=== PATIENT | male | born 1950 | race Caucasian/White ===

== ENCOUNTER 2024-06-26 17:22 | Emergency (ER) | payer MEDICAID, MEDICARE ==
[~2024-06-26] VITALS: Ht 175.3 cm; Wt 90.0 kg
[2024-06-26 17:33] VITALS: TEMP 98.1
[2024-06-26 19:36] LABS: BASOPHILS % (AUTO) 0.6 % (0.0-2.0); EOSINOPHILS % (AUTO) 2.7 % (1.0-6.0); HEMATOCRIT 50.3 % (41-53); HEMOGLOBIN 16.9 g/dL (13.5-17.5); LYMPHOCYTES # (AUTO) 2.1 K/uL (1.0-4.8); LYMPHOCYTES % (AUTO) 24.6 % (22.0-44.0); MEAN CORPUSCULAR HEMOGLOBIN 30.2 pg (26.0-34.0); MEAN CORPUSCULAR HGB CONC 33.5 G/dL (31.0-37.0); MEAN CORPUSCULAR VOLUME 90 fL (80-100); NEUTROPHILS # (AUTO) 5.1 K/uL (1.8-7.7); NEUTROPHILS % (AUTO) 60.1 % (40.0-70.0); PLATELET COUNT (AUTO) 242 K/uL (150-450); RED BLOOD CELL COUNT(AUTO) 5.59 MIL/uL (4.50-5.90); RED CELL DISTRIBUTION WIDTH 12.7 % (11.5-14.5); WHITE BLOOD COUNT (AUTO) 8.6 K/uL (4.5-11.0)
[2024-06-26 19:45] LABS: ANION GAP 9 mmol/L (8-16); CALCIUM, TOTAL 9.8 mg/dL (8.8-10.5); CARBON DIOXIDE 28 mmol/L (22-29); CHLORIDE 102 mmol/L (98-107); CREATININE 0.81 mg/dL (0.60-1.30); GLOMERULAR FILTR. RATE CALC > 60 mL/min (>60); GLUCOSE,RANDOM 99 mg/dL (70-110); POTASSIUM 4.3 mmol/L (3.5-5.1); SODIUM SERUM 139 mmol/L (136-145); UREA NITROGEN, BLOOD 16 mg/dL (7-18)
[2024-06-26 19:51] LABS: PROTHROMBIN TIME 10.4 SEC (9.4-11.6)
[2024-06-26 19:54] LABS: CREATINE KINASE, TOTAL ONLY 79 U/L (39-308); TROPONIN I-HIGH SENSITIVITY 9 ng/L (<76)
[2024-06-26 20:16] LABS: B-TYPE NATRIURETIC PEPTIDE 41 pg/mL (0-100)
[2024-06-26] MEDS: CloNIDine HCL 0.1 MG TABLET PO ONE (20:18)
[2024-06-26] MEDS ORDERED: LISI-892 PO (21:35)
[2024-06-26 21:45] VITALS: BP 150/94; PULSE 61; RESP 16; O2SAT 94
== END 2024-06-26 21:46 | disposition home or self-care (01) ==
LOC: EMS 17:22 → EDUNIT# 17:22 → EMS 21:46
DX: I10 Essential (primary) hypertension (principal)
CPT/HCPCS: 71045; 80048; 82550; 83880; 84484; 85025; 85610; 85730; 93005; 99285; 36415-L1; 36415-TC